=== PATIENT | male | born 2000 | race Caucasian/White ===

== ENCOUNTER 2019-03-02 09:23 | Day surgery (SDC) | payer OTHER, SELFPAY ==
--- NOTE | 2019-03-02 | TISS_PTH ---
PATIENT: MARVIN GARRIDO LOC: [facility] [place] [facility] [place][id number] AGE/SX: 18/M ROOM: RE03/02/[address]: Dr. Avi Cosby MD : 2000 BED: DIS: 03/02/2019 SPEC #: [id number] RECD: 03/02/19 12:41 STATUS: [facility] [place] #: [id number] GABRIEL: 03/02/19 00:[address]: Avi Cosby DEPT: SURGICAL PATHOLOGY RECD BY: Nimo Davis ENTERED: 03/02/19 14:24 SP TYPE: Tissue Bx OTHR DR: Out of Town Doctor Tissues: A - Maxilla, NOS B - Pharynx, NOS C - Ethmoid sinus, NOS D - Ethmoid sinus, NOS Procedures: Decalcification bone/plaque Frozen Section (charge) Surgery Specimen Level III Surgery Specimen Level IV HEADER OPERATION: Endoscopic sinus surgery, bilateral maxillary antrostomy PRE-OP DIAGNOSIS: Chronic sinusitis of both maxillary sinuses; hypertrophy of inferior nasal turbinate; chronic non-intractable headache TISSUE SUBMITTED: A - Destructive lesion of right maxillary sinus (sent for frozen at 1234), B - Nasopharyngeal cyst, C - Left sinus contents, D - Right sinus contents FROZEN SECTION DIAGNOSIS A. Right maxillary sinus, biopsy: Benign respiratory epithelium and subepithelial tissue with mild chronic inflammation. AM:nael 03/02/19 MICROSCOPIC DIAGNOSIS A. Right maxillary sinus, biopsy: Respiratory mucosa and submucosa with minimal chronic inflammation. Fragments of bone with no pathologic change. B. Nasopharyngeal cyst, biopsy: Benign reactive lymphoid tissue. See comment. C. Left sinus contents: Fragments of benign respiratory epithelium and subepithelial glands with mild chronic inflammation. Fragments of bone with no pathologic change. See comment. D. Right sinus contents: Fragments of benign respiratory epithelium and subepithelial glands with mild chronic inflammation. Fragments of bone with no pathologic change. See comment. AM:nael 03/09/19 COMMENT B. Sections show benign respiratory epithelium and underlying benign lymphoid tissue. Immunohistochemistry ([id number]) supports the above diagnosis. C & D. The findings are consistent with chronic sinusitis. MICROSCOPIC DESCRIPTION Slides are reviewed. GROSS DESCRIPTION A - Received fresh for frozen section consultation labeled with the patient's name is a specimen designated lesion of right maxillary sinus. The specimen consists of a single irregular fragment of pink-villegas soft tissue measuring in aggregate 0.4 x 0.2 x 0.1 cm. The specimen is inked and submitted in its entirety in one block for frozen section consultation. / AM: 03/02/19 B - Received in fixative is one container labeled with the patient's name and designated nasopharyngeal cyst. The specimen consists of two irregular fragments of villegas soft tissue that in aggregate measure 0.5 x 0.3 x 0.1 cm. The specimen is totally submitted in one cassette. / AM: 03/06/19 C - Received in fixative is one container labeled with the patient's name and designated left sinus contents. The specimen consists of multiple irregular fragments of light villegas soft tissue that in aggregate measure 2.2 x 1 x 0.1 cm. The specimen is totally submitted in one cassette after decalcification. / AM: 03/06/19 D - Received in fixative is one container labeled with the patient's name and designated right sinus contents. The specimen consists of multiple irregular fragments of gritty light villegas soft tissue that in aggregate measure 2 x 1 x 0.2 cm. The specimen is totally submitted in one cassette after decalcification. / AM: 03/06/19 TC:3 CPT: 89315 x2, 02933 x2, 51645 x2, 16862
--- NOTE | 2019-03-02 | IMM_PTH ---
PATIENT: MARVIN GARRIDO LOC: [facility] [place] U#:[id number] AGE/SX: 18/M ROOM: RE03/02/[address]: Dr. Avi Cosby MD : 2000 BED: DIS: 03/02/2019 SPEC #: [id number] RECD: 03/07/19 12:23 STATUS: [facility] REQ #: [id number] GABRIEL: 03/02/19 00:[address]: Avi Cosby DEPT: IMMUNOHISTOCHEMISTRY RECD BY: Nimo Davis ENTERED: 03/07/19 12:24 SP TYPE: IMMUNO OTHR DR: Out of [facility] Doctor Tissues: B - Nasopharynx, NOS Procedures: CD138 (add) CD20 (add) CD45 (add) CD5 (add) CD79A (add) Pankeratin (add) CD3 (initial) PHYSICIAN & INSTITUTION [place] [id number] SPECIMEN INFORMATION: Tissue Source: B - Nasopharyngeal cyst Clinical Info: Chronic maxillary sinusitis, hypertrophy of inferior nasal turbinate Specimen Number: [id number] CPT code: 15603, 79727 x6 METHODOLOGY: Deparaffinized sections of prefer/formalin-fixed tissue or PAP/DQ stained slides are incubated with monoclonal/polyclonal antibodies/oligonucleotide probes. Localization is made via biotin free immunoperoxidase method. Appropriate controls are performed and reacted as expected. Results on target cell population are indicated in the following table: RESULTS: ANTIBODY / CLONE RESULT Block B CD3 (PS1) positive CD5 (SP10) positive CD20 (L26) positive CD45 (RP2/18) positive CD79a (11E3) positive CD138 (B-A38) negative AE1-3 (AE1/AE3/PCK26) negative These tests were developed and their performance characteristics determined by [facility]. They may not have been cleared or approved by the U.S. Food and Drug Administration. The FDA has determined that such clearance or approval is not necessary. INTERPRETATION: B. Nasopharyngeal cyst, biopsy: Polytypic lymphoid aggregate. AM:nael 03/08/19
[2019-03-02 09:45] VITALS: BP 119/74; PULSE 85; RESP 17; TEMP 36.8; O2SAT 100; BMI 24.3
[2019-03-02] MEDS: Lidocaine 4% 50 ML Bottle OPERA.SITE (12:00)
[2019-03-02] MEDS: Oxymetazoline 0.05% 1 SPRAY SPRAY.BTL 15 SPRAY (12:00)
--- NOTE | 2019-03-02 12:59 | PCM.OPRPT ---
Problem List (1) Chronic maxillary sinusitis Status: Chronic (2) Pharyngeal or nasopharyngeal cyst Status: Chronic (3) Chronic ethmoidal sinusitis Status: Chronic Report of Operation Date of Procedure: 03/02/19 Pre-Operative Diagnosis: Chronic maxillary, ethmoid sinusitis bilaterally Post-Operative Diagnosis: Chronic sinusitis, erosion of right maxillary sinus wall, nasopharyngeal cyst Surgery/Procedure Performed:: Bilateral maxilayr antrostomies, total ethmoidectomies, excision of nasopharyngeal cyst Description of Surgical Findings:: Josiah is a 18-year-old male complains of chronic headache with CT scan showing chronic maxillary and ethmoid sinus disease bilaterally with accessory maxillary ostia noted on exam consistent with chronic infection. The above procedure was offered in hopes of improvement of these complaints and he is eager to proceed. The risks, alternatives, potential complications, and benefits were discussed at length and any questions answered to the patient and/or caregiver's satisfaction. Witnessed informed consent was obtained in the office, and the patient and/or caregiver was agreeable to proceed. Procedure went as follows: The patient was identified in the preoperative holding and brought to the operating room, was placed under general anesthesia and intubated. When appropriate anesthesia was obtained, the navigational head gear was placed and confirmed to be operational in accordance with the teletype technician's directions. Pledgets soaked in a 50-50 mixture of oxymetazoline and 4% topical lidocaine were placed to decongest the nasal mucosa. These were then removed and beginning on the left side using a 0? endoscope the nasal cavity examined. The insertion of the middle turbinate and uncinate process was then injected with 1% lidocaine with 100,000 epinephrine for a total of 2 mL, and a similar injection was then carried on the contralateral side. Upon returning to the left side, the middle turbinate was medialized with a Yari elevator. This allowed examination of the maxillary sinus ostia which was then probed with a double ball seeker. The uncinate process was then outfractured with a J curette and transected with a backbiting forceps. This was then removed with the microdebrider creating a wide maxillary antrostomy taking care to join this in continuity with the anterior accessory maxillary ostium. The ethmoid bulla was then entered and a total ethmoidectomy was then carried out working posteriorly to anterior. Any polyps, scar, and mucous secretions were removed. The contralateral side, there is noted to be a wide erosive absence of the medial maxillary wall. Under navigational guidance the ethmoid bulla was identified in the wide ethmoidectomy was then carried out resulting in total ethmoidectomy. The tissue of the maxillary antrum was then biopsied and sent for pathologic evaluation which revealed benign chronic inflammatory changes without suggestion of overt malignancy. This completed the sinus surgery portion of the procedure. Pledgets soaked in oxymetazoline were then placed for hemostasis. There was incidentally noted to be a 1 cm nasopharyngeal cyst just to the left of the midline. Given the patient's complaint of chronic headache and the association of headache with these lesions this was then removed as follows. The mucosa overlying the cyst was grasped with a Kamaljit forceps and withdrawn and sent for pathologic specimen. A thick mucinous glob of material was then aspirated consistent with a nasopharyngeal cyst contents. The base of this was then cauterized with suction electrocautery to obliterate the cyst and prevent recurrence. Attention was then returned to the sinus and the hemostatic pledgets removed. Floseal hemostatic agent was then applied. An NG tube was then placed to decompress the stomach and the patient returned to anesthesia, revived and extubated having tolerated the procedure well. Type of Anesthesia:: General Anesthesiologist: Jan Francis Special Medications: none Specimen's removed: sinus contents, biopsy of right maxillary sinus, nasopharyngeal cyst Drains: none Estimated Blood Loss (mL): 75 mL Fluids Replaced: 1300 mL Grafts/Implants Used: none - Complications none - Admit VTE Documentation VTE Present on Admission: No VTE Mechan Device Prophylaxis: SCD's VTE Pharm Prophylaxis ordered?: No
--- NOTE | 2019-03-02 13:08 | DCINST_ITS ---
- Discharge Diagnoses Current Active Problems: Current Active and Chronic Problems Chronic ethmoidal sinusitis (Chronic) Chronic maxillary sinusitis (Chronic) Pharyngeal or nasopharyngeal cyst (Chronic) You will use the following diet at home:: Regular Discharge Activity: Return to Normal Activity, May not drive while taking narcotic pain medications. Call your doctor if your incision/area has: Sudden Increased Bleeding Call your doctor if you observe: Fever of 101 or Higher, Uncontrolled pain Allergies/Adverse Reactions: Allergies No Known Allergies Allergy (Verified 03/02/19 09:44) Medications to take at Discharge Budesonide Aerosol [Pulmicort Aerosol] 0.5 mg INHALATION BID 02/27/19 RX: Ibuprofen 400 mg PO PRN PRN 02/27/19 Primary Care Physician: Tayler Pickett,Out of [Primary Care Provider] - Test Results: Test results from this visit will be discussed in further detail at your follow- up appointment, if applicable. Please Follow Up With: Avi Cosby MD When: 2 weeks
[2019-03-02 13:10] VITALS: BP 119/74; BP 126/82; PULSE 67; RESP 16; TEMP 36.4; O2SAT 100
[2019-03-02 13:15] VITALS: BP 119/74; BP 123/89; PULSE 64; RESP 16; O2SAT 100
[2019-03-02 13:30] VITALS: BP 119/74; BP 126/88; PULSE 76; RESP 16; O2SAT 100
[2019-03-02 13:45] VITALS: BP 119/74; BP 127/92; PULSE 69; RESP 16; TEMP 36.6; O2SAT 100
[2019-03-02 14:23] VITALS: BP 115/72; BP 119/74; PULSE 93; RESP 16; TEMP 36.6; O2SAT 100
== END 2019-03-02 14:23 | disposition home or self-care (01) ==
LOC: SDC 09:24 → AC 09:26
PROVIDERS: Referring Provider Otolaryngology; Visit Provider Otolaryngology
PROC: (CPT 31255; principal; 2019-03-02 08:35)
DX: J32.2 Chronic ethmoidal sinusitis (principal); J32.0 Chronic maxillary sinusitis; J39.2 Other diseases of pharynx
CPT/HCPCS: 00160; 31255; 31299; 88304; 88305; 88311; 88331; 88341; 88342; J7120; J2405